=== PATIENT | female | born 1955 | race Caucasian/White ===

== ENCOUNTER 2024-06-14 09:27 | Day surgery (SDC) | payer MEDICARE, OTHER ==
[2024-06-14] MEDS ORDERED: Propofol 200 MG/20 ML SDV ONE ×2 (09:42)
[2024-06-14] MEDS ORDERED: Ketamine 200 MG/20 ML MDV ONE (09:42)
[2024-06-14] MEDS: Lactated Ringers 1,000 ML IV SCH (09:42)
[2024-06-14] MEDS ORDERED: fentaNYL 50 MCG/ML SDV ONE (09:42)
== END 2024-06-14 11:05 | disposition home or self-care (01) ==
LOC: CC.SDS 09:27
PROVIDERS: ATTEND Family Medicine
DX: Z12.11 Encounter for screening for malignant neoplasm of colon (principal); R19.5 Other fecal abnormalities; K57.30 Diverticulosis of large intestine without perforation or abscess without bleeding; K64.1 Second degree hemorrhoids; K52.9 Noninfective gastroenteritis and colitis, unspecified; I10 Essential (primary) hypertension; E78.5 Hyperlipidemia, unspecified; Z79.899 Other long term (current) drug therapy; Z87.891 Personal history of nicotine dependence; Z86.010 Personal history of colon polyps
CPT/HCPCS: 45380; 88305; J2704; J3010; J7120; 00811; J3490